=== PATIENT | female | born 1995 ===

== ENCOUNTER → 2021-06-08 | Day surgery (SDC) | payer OTHER ==
[~2021-06-08] VITALS: Ht 149.9 cm; Wt 57.6 kg
[~2021-06-08] MED LIST: AMOXICILLIN500 M1 PO; FLUOXETINE HCL10 MG PO; MOTRIN600 MG PO; PHENERGAN25 M1 PO; PREDNISONE10 M1 PO
[2021-06-08 09:21] LABS: HCG (URINE) SCREEN NEGATIVE (NEGATIVE)
[2021-06-08 09:38] LABS: BASOPHIL 0.1 % (0-2); EOSINOPHIL 1.1 % (0-5); HCT 40.9 % (37.0-47.0); HGB 13.7 g/dl (12.5-16.0); LYMPHOCYTE 22.6 % (15-48); MCH 31.1 pg (25.0-31.0); MCHC 33.5 g/dL (32.0-36.0); MCV 92.7 fL (78.0-100.0); MONOCYTE 5.7 % (0-12); MPV 10.8 fL (6.0-9.5); NEUTROPHIL 70.2 % (41-80); NRBC 0; PLT 202 K/uL (150-400); RBC 4.41 M/uL (4.20-5.40); RDW 12.1 % (11.5-14.0); WBC 7.2 K/uL (4.0-10.5)
== END | disposition home or self-care (01) ==
LOC: FAS 07:30
PROVIDERS: Oral & Maxillofacial Surgery
DX: K02.9 Dental caries, unspecified (principal); K04.7 Periapical abscess without sinus; F41.8 Other specified anxiety disorders; Z88.1 Allergy status to other antibiotic agents
CPT/HCPCS: D7140; D7210; 36415; 84703; 85025; J1100; J1200; J1885; J2250; J2405; J2704; J2710; J3010; J7120